=== PATIENT | male | born 1985 | race Caucasian/White ===

== ENCOUNTER → 2018-08-11 | Outpatient (CLI) | payer OTHER ==
[~2018-08-11] MED LIST: ALBU90OI INH; HYDACE5 PO; PROM25 PO
== END | disposition home or self-care (01) ==
LOC: LAB SHORT 16:00 → LAB 16:00
DX: L08.9 Local infection of the skin and subcutaneous tissue, unspecified (principal)
CPT/HCPCS: 87070; 87075; 87205

== ENCOUNTER 2020-10-16 14:27 | Emergency (ER) | payer OTHER ==
[~2020-10-16] VITALS: Ht 172.7 cm; Wt 81.7 kg
[2020-10-16] MEDS ORDERED: CYCL10 PO (15:45)
[2020-10-16] MEDS ORDERED: LIDO700A20 TOP (15:45)
== END 2020-10-16 16:01 | disposition home or self-care (01) ==
LOC: ER 14:27
DX: M25.551 Pain in right hip (principal); Z88.0 Allergy status to penicillin; X50.1XXA Overexertion from prolonged static or awkward postures, initial encounter; Y92.89 Other specified places as the place of occurrence of the external cause; Y99.0 Civilian activity done for income or pay
CPT/HCPCS: 73502; 99283-25

== ENCOUNTER → 2024-11-09 | Outpatient (CLI) | payer BC, OTHER ==
[~2024-11-09] MED LIST changes: +CYCL10 PO; +LIDO700A20 TOP
[2024-11-17 13:43] LABS: CALCIUM, URINE - PER 24H 339 mg/d (100-250); CALCIUM, URINE - PER VOLUME 26.1 mg/dL; CHLORIDE, URINE - PER 24H 161 mmol/d (140-250); CHLORIDE, URINE - PER VOLUME 124 mmol/L; CITRIC ACID, URINE - PER 24H 741 mg/d (320-1240); CITRIC ACID,URINE - PER VOLUME 570 mg/L; CREATININE, URINE - PER 24H 1508 mg/d (1000-2500); CREATININE, URINE - PER VOLUME 116 mg/dL; HOURS COLLECTED 24 hr; MAGNESIUM, URINE - PER VOLUME 11.3 mg/dL; MAGNESIUM, URINE PER 24H 147 mg/d (12-199); OXALATE, URINE - PER 24H 29 mg/d (16-49); OXALATE, URINE - PER VOLUME 22 mg/L; PH, URINE 5.68 (5.00-7.50); PHOSPHORUS, URINE - PER 24H 1287 mg/d (400-1300); PHOSPHORUS, URINE - PER VOLUME 99 mg/dL; POTASSIUM, URINE - PER 24H 39 mmol/d (25-125); POTASSIUM, URINE - PER VOLUME 30 mmol/L; SODIUM, URINE - PER 24H 183 mmol/d (51-286); SODIUM, URINE - PER VOLUME 141 mmol/L; SULFATE, URINE - PER 24H 29 mmol/d (6-30); SULFATE, URINE - PER VOLUME 22 mmol/L; TOTAL VOLUME 1300 mL; URIC ACID, URINE - PER 24H 571 mg/d (250-750); URIC ACID, URINE - PER VOLUME 43.9 mg/dL; URINE SUPERSATURATION INTERP Abnormal; URINE SUPERSATURATION, CAHPO4 2.79; URINE SUPERSATURATION, CAOX 9.07; URINE SUPERSATURATION, UA CALC 1.14
== END | disposition home or self-care (01) ==
LOC: LAB SHORT 08:00 → LAB 08:00 → EDSTATUS 03-19 12:00 → LAB FUT 03-19 12:00
PROVIDERS: Nurse Practitioner Acute Care
DX: N20.0 Calculus of kidney (principal)
CPT/HCPCS: 81003; 81050; 82131; 82140; 82340; 82436; 82507; 82570; 83735; 83935; 83945; 84105; 84133; 84300; 84392; 84560